=== PATIENT | female | born 1985 | race Caucasian/White ===

== ENCOUNTER → 2025-01-28 08:49 | Outpatient (REF) | payer BC, SELFPAY | LOC: MRI 3T 08:49 | PROVIDERS: ATTENDING PHYSICIAN Specialist; FAMILY PHYSICIAN Internal Medicine | DX: T85.43XD Leakage of breast prosthesis and implant, subsequent encounter (principal); T85.44XA Capsular contracture of breast implant, initial encounter; Z98.82 Breast implant status | CPT/HCPCS: 77047; C8937 ==